=== PATIENT | female | born 1945 | race Caucasian/White ===

== ENCOUNTER → 2023-08-22 09:19 | Outpatient (REF) | payer MEDICARE, OTHER, SELFPAY | LOC: HWRAD 09:19 | PROVIDERS: ATTENDING PHYSICIAN Nurse Practitioner Adult Health | DX: I71.012 Dissection of descending thoracic aorta (principal) | CPT/HCPCS: 71275; Q9967 ==

== ENCOUNTER → 2023-12-13 10:00 | Outpatient (REF) | payer MEDICARE, OTHER, SELFPAY | LOC: HWRAD 10:00 | PROVIDERS: ATTENDING PHYSICIAN Surgery Vascular Surgery; FAMILY PHYSICIAN Nurse Practitioner Adult Health | DX: I71.019 Dissection of thoracic aorta, unspecified (principal); I71.012 Dissection of descending thoracic aorta | CPT/HCPCS: 71275; Q9967 ==

== ENCOUNTER → 2024-09-21 10:28 | Outpatient (REF) | payer MEDICARE, OTHER, SELFPAY | LOC: HWRAD 10:28 | PROVIDERS: ATTENDING PHYSICIAN Student in an Organized Health Care Education/Training Program; FAMILY PHYSICIAN Nurse Practitioner Adult Health | DX: I25.10 Atherosclerotic heart disease of native coronary artery without angina pectoris (principal) | CPT/HCPCS: 75571 ==

== ENCOUNTER → 2024-09-29 12:12 | Outpatient (REF) | payer MEDICARE, OTHER, SELFPAY | LOC: HWRAD 12:12 | PROVIDERS: ATTENDING PHYSICIAN Internal Medicine Nephrology; FAMILY PHYSICIAN Nurse Practitioner Adult Health | DX: E87.5 Hyperkalemia (principal) | CPT/HCPCS: 76770 ==

== ENCOUNTER → 2025-01-15 10:27 | Outpatient (REF) | payer MEDICARE, OTHER, SELFPAY | LOC: RAD 10:27 | PROVIDERS: ATTENDING PHYSICIAN Surgery Vascular Surgery; FAMILY PHYSICIAN Nurse Practitioner Adult Health | DX: I71.019 Dissection of thoracic aorta, unspecified (principal) | CPT/HCPCS: 71275; Q9967 ==

== ENCOUNTER → 2025-03-15 09:08 | Outpatient (REF) | payer MEDICARE, OTHER, SELFPAY | LOC: HWRAD 09:08 | PROVIDERS: ATTENDING PHYSICIAN Internal Medicine Nephrology; FAMILY PHYSICIAN Nurse Practitioner Adult Health | DX: R33.9 Retention of urine, unspecified (principal) | CPT/HCPCS: 76770 ==